=== PATIENT | male | born 1990 | race American Indian/Alaskan Native ===

== ENCOUNTER 2019-10-09 21:28 | Emergency (ER) | payer SELFPAY ==
[2019-10-10 01:46] VITALS: BP 127/70
[2019-10-10] MEDS ORDERED: ONDANSETRON 4 MG ODT TAB PO ONE (02:13)
[2019-10-10] MEDS ORDERED: FAMOTIDINE 20 MG TAB PO ONE (02:13)
[2019-10-10] MEDS ORDERED: diphenhydrAMINE 25 MG CAP PO ONE (02:13)
[2019-10-10] MEDS ORDERED: predniSONE 20 MG TAB PO ONE (02:13)
[2019-10-10] MEDS ORDERED: IBUPROFEN 600 MG TAB PO ONE (02:13)
--- NOTE | 2019-10-10 02:14 | Emergency Department Report ---
HPI - General Chief Complaint: Allergic Reaction ED Past Medical Hx - Past Medical History Previous Medical History?: Yes Additional medical history: "stomache ulcer"- no meds prescribed - Surgical History Past Surgical History?: No - Social History Smoking Status: Never Smoker Substance Use Type: Alcohol ED Review of Systems ROS: Stated complaint: ALLERGIC REACTION Other details as noted in HPI Physical Exam - Physical Exam Vital Signs: Vital Signs 10/10/19 01:44 Temperature 98.2 F Pulse Rate 69 Respiratory 18 Rate Blood Pressure 127/70 O2 Sat by Pulse 100 Oximetry ED Course Vital Signs 10/10/19 01:44 Temperature 98.2 F Pulse Rate 69 Respiratory 18 Rate Blood Pressure 127/70 O2 Sat by Pulse 100 Oximetry Critical care attestation.: If time is entered above; I have spent that time in minutes in the direct care of this critically ill patient, excluding procedure time. ED Disposition Condition: Stable Referrals: PRIMARY CARE [Primary Care Provider] - 3-5 Days
--- NOTE | 2019-10-10 02:20 | Emergency Department Report ---
ED General Adult HPI - General Chief complaint: Allergic Reaction Stated complaint: ALLERGIC REACTION Source: patient Mode of arrival: Ambulatory Limitations: No Limitations - History of Present Illness Initial comments: Patient is a 29-year-old -[place] male with no past medical history presents to the ED with complaint of acute onset persistent nasal and sinus congestion, frontal sinus pressure and sore throat for the last 2 days. Patient states that he was initially evaluated by his dentist and given a prescription for penicillin which he has been taking for the last 2 days. Patient states that the dentist diagnosed him with dental abscesses and gingivitis. Patient states that he then bought [id number] cough syrup and has been taking that together with the penicillin but developed diffuse burning sensation, worsening sore throat, chest tightness about 6 hours ago. Patient denies dizziness, diffuse itchy erythematous maculopapular rash, chest pain, shortness of breath, nausea, vomiting, diarrhea, abdominal pain, fever, chills, syncope, swollen lips or tongue, swollen throat, change in vision, facial swelling, dysphagia or dysphonia. MD Complaint: sore throat; diffuse burning sensation; diaphoresis; nasal congestion -: Sudden, days(s) (2) Location: mouth, chest Radiation: non-radiation Quality: burning, aching, sharp Consistency: intermittent Improves with: none Worsens with: none Associated Symptoms: denies other symptoms, cough, diaphoresis, headaches, loss of appetite, malaise, shortness of breath. denies: confusion, chest pain, fever/chills, nausea/vomiting, rash, seizure, syncope, weakness, other Treatments Prior to Arrival: none - Related Data Previous Rx's Medication Instructions Recorded Last Taken Type Famotidine [Pepcid] 20 mg PO Q12H #20 tablet 10/10/19 Unknown Rx hydrOXYzine PAMOATE [Vistaril] 25 mg PO Q6HR PRN #30 capsule 10/10/19 Unknown Rx predniSONE [Deltasone] 40 mg PO QDAY #10 tab 10/10/19 Unknown Rx Allergies Allergy/AdvReac Type Severity Reaction Status Date / Time No Known Allergies Allergy Unverified 10/09/19 22:20 ED Review of Systems ROS: Stated complaint: ALLERGIC REACTION Other details as noted in HPI Constitutional: denies: chills, fever Eyes: denies: eye pain, eye discharge, vision change ENT: throat pain, dental pain, congestion. denies: ear pain Respiratory: cough. denies: shortness of breath, wheezing Cardiovascular: denies: chest pain, palpitations Endocrine: no symptoms reported Gastrointestinal: denies: abdominal pain, nausea, diarrhea Genitourinary: denies: urgency, dysuria Musculoskeletal: denies: back pain, joint swelling, arthralgia Skin: denies: rash, lesions Neurological: denies: headache, weakness, paresthesias Psychiatric: denies: anxiety, depression Hematological/Lymphatic: denies: easy bleeding, easy bruising ED Past Medical Hx - Past Medical History Previous Medical History?: Yes Additional medical history: "stomache ulcer"- no meds prescribed - Surgical History Past Surgical History?: No - Social History Smoking Status: Never Smoker Substance Use Type: Alcohol - Medications Home Medications: Home Medications Medication Instructions Recorded Confirmed Last Taken Type Famotidine [Pepcid] 20 mg PO Q12H #20 tablet 10/10/19 Unknown Rx hydrOXYzine PAMOATE [Vistaril] 25 mg PO Q6HR PRN #30 capsule 10/10/19 Unknown Rx predniSONE [Deltasone] 40 mg PO QDAY #10 tab 10/10/19 Unknown Rx ED Physical Exam - General Limitations: No Limitations General appearance: alert, in no apparent distress - Head Head exam: Present: atraumatic, normocephalic, normal inspection - Eye Eye exam: Present: normal appearance, PERRL, EOMI Pupils: Present: normal accommodation - ENT ENT exam: Present: normal orophraynx, mucous membranes moist, TM's normal bilaterally, normal external ear exam, other (Grossly congested nasal passages) - Neck Neck exam: Present: normal inspection, full ROM - Respiratory Respiratory exam: Present: normal lung sounds bilaterally. Absent: respiratory distress, wheezes, rales, rhonchi, chest wall tenderness, accessory muscle use, decreased breath sounds, prolonged expiratory - Cardiovascular Cardiovascular Exam: Present: regular rate, normal rhythm, normal heart sounds. Absent: systolic murmur, diastolic murmur, rubs, gallop - GI/Abdominal GI/Abdominal exam: Present: soft, normal bowel sounds. Absent: tenderness, hyperactive bowel sounds, hypoactive bowel sounds, organomegaly - Extremities Exam Extremities exam: Present: normal inspection, full ROM, normal capillary refill - Back Exam Back exam: Present: normal inspection, full ROM. Absent: tenderness, CVA tenderness (R), muscle spasm, paraspinal tenderness, vertebral tenderness - Neurological Exam Neurological exam: Present: alert, oriented X3, CN II-XII intact, normal gait, reflexes normal - Psychiatric Psychiatric exam: Present: normal affect, normal mood - Skin Skin exam: Present: warm, dry, intact, normal color. Absent: rash ED Course Vital Signs 10/10/19 01:44 Temperature 98.2 F Pulse Rate 69 Respiratory 18 Rate Blood Pressure 127/70 O2 Sat by Pulse 100 Oximetry ED Medical Decision Making - Medical Decision Making This is a 29-year-old male who presented to the ED with complaint of sore throat, diffuse burning sensation throughout the body with diaphoresis, chills, fever, sore throat, nasal and sinus congestion. Patient states that he is currently on penicillin for a dental abscess and had been taking [id number] cough syrup. In the ED, patient is alert and oriented x3 and is not in distress but anxious. Patient was treated for a suspected acute allergic reaction to the cough syrup. Patient was discharged home on medication in addition to what he is really taking. Patient was advised to stop taking the cough syrup and to continue taking the penicillin as well as the prescribed steroids and Benadryl to come the symptoms that he has been having down. Patient was advised to follow-up with his primary care physician in 7 to 10 days for reevaluation or return to the ED immediately if symptoms get worse. - Differential Diagnosis pharyngitis; URI; Bronchitis; Allergic reaction Critical care attestation.: If time is entered above; I have spent that time in minutes in the direct care of this critically ill patient, excluding procedure time. ED Disposition Clinical Impression: Acute upper respiratory infection, Anxiety as acute reaction to exceptional stress Acute pharyngitis Qualifiers: Pharyngitis/tonsillitis etiology: other specified organisms Qualified Code(s): J02.8 - Acute pharyngitis due to other specified organisms Acute allergic reaction Qualifiers: Encounter type: initial encounter Qualified Code(s): T78.40XA - Allergy, unspecified, initial encounter Disposition: - TO HOME OR SELFCARE Is pt being admited?: No Does the pt Need Aspirin: No Condition: Stable Instructions: Allergies (ED), Urticaria (ED), Upper Respiratory Infection (ED), Anxiety (ED) Additional Instructions: Take medications as advised together with the other medication that you are ready have. Stop taking the cough syrup immediately. Follow-up with your primary care physician in 7 to 10 days for reevaluation. Return to the ED immediately if symptoms get worse. Prescriptions: predniSONE [Deltasone] 40 mg PO QDAY #10 tab Famotidine [Pepcid] 20 mg PO Q12H #20 tablet hydrOXYzine PAMOATE [Vistaril] 25 mg PO Q6HR PRN #30 capsule PRN Reason: Anxiety Referrals: [facility] [Outside] - 3-5 Days Time of Disposition: 02:22 Print Language: AMHARIC
== END 2019-10-10 02:33 | disposition home or self-care (01) ==
LOC: ED 21:28
DX: T78.40XA Allergy, unspecified, initial encounter (principal); J06.9 Acute upper respiratory infection, unspecified; J02.9 Acute pharyngitis, unspecified; F43.0 Acute stress reaction; Z79.899 Other long term (current) drug therapy; X58.XXXA Exposure to other specified factors, initial encounter
CPT/HCPCS: 99282; J7512; Q0162

== ENCOUNTER 2020-11-27 00:53 | Emergency (ER) | payer OTHER ==
[2020-11-27 01:09] VITALS: BP 128/83
--- NOTE | 2020-11-27 03:48 | Emergency Department Report ---
ED General Adult HPI - General Chief complaint: Dental/Oral Stated complaint: TOOTH PAIN Source: patient Mode of arrival: Ambulatory Limitations: No Limitations - History of Present Illness Initial comments: Patient is a 30-year-old -Serbian male with no past medical history who presents to the ED with complaint of acute onset persistent severe painful swollen left mandibular gingiva with premolar and molar toothache for the last 3 days, worse in the last 24 hours. Patient states that he has been taking [id number] Tylenol with no relief. Patient states that he has not been able to eat or sleep because of worsening pain. Patient states that he contacted various dentists in his local area but was unable to get any appointment at least in the next 2 months. Patient denies dizziness, syncope, fever, chills, nausea and vomiting, sore throat, headache, chest pain, shortness of breath, abdominal pain, dysphagia, dysphonia or traumatic injury. MD Complaint: Toothache, swollen gums -: Sudden, days(s) (3) Location: mouth Radiation: non-radiation Severity scale (0 -10): 8 Quality: aching, sharp Consistency: constant Improves with: none Worsens with: none Associated Symptoms: denies other symptoms. denies: confusion, chest pain, cough, diaphoresis, fever/chills, headaches, loss of appetite, malaise, na usea/vomiting, rash, seizure, shortness of breath, syncope, weakness Treatments Prior to Arrival: none - Related Data Previous Rx's Medication Instructions Recorded Last Taken Type Famotidine [Pepcid] 20 mg PO Q12H #20 tablet 10/10/19 Unknown Rx hydrOXYzine PAMOATE [Vistaril] 25 mg PO Q6HR PRN #30 capsule 10/10/19 Unknown Rx predniSONE [Deltasone] 40 mg PO QDAY #10 tab 10/10/19 Unknown Rx Clindamycin [Clindamycin CAP] 300 mg PO Q8HR #60 capsule 11/27/20 Unknown Rx Ketorolac [Toradol] 10 mg PO Q8H PRN #20 tablet 11/27/20 Unknown Rx traMADoL [Ultram] 50 mg PO Q6HR PRN #12 tablet 11/27/20 Unknown Rx Allergies Allergy/AdvReac Type Severity Reaction Status Date / Time No Known Allergies Allergy Unverified 10/09/19 22:20 ED Review of Systems ROS: Stated complaint: TOOTH PAIN Other details as noted in HPI Constitutional: denies: chills, fever Eyes: denies: eye pain, eye discharge, vision change ENT: dental pain, other (Painful swollen left mandibular gingiva). denies: ear pain, throat pain Respiratory: denies: cough, shortness of breath, wheezing Cardiovascular: denies: chest pain, palpitations Endocrine: no symptoms reported Gastrointestinal: denies: abdominal pain, nausea, vomiting, diarrhea Genitourinary: denies: urgency, dysuria Musculoskeletal: denies: back pain, joint swelling, arthralgia Skin: denies: rash, lesions Neurological: denies: headache, weakness, paresthesias Psychiatric: denies: anxiety, depression Hematological/Lymphatic: denies: easy bleeding, easy bruising ED Past Medical Hx - Past Medical History Previous Medical History?: No Additional medical history: "stomache ulcer"- no meds prescribed - Surgical History Past Surgical History?: No - Social History Smoking Status: Never Smoker Substance Use Type: None - Medications Home Medications: Home Medications Medication Instructions Recorded Confirmed Last Taken Type Famotidine [Pepcid] 20 mg PO Q12H #20 tablet 10/10/19 Unknown Rx hydrOXYzine PAMOATE [Vistaril] 25 mg PO Q6HR PRN #30 capsule 10/10/19 Unknown Rx predniSONE [Deltasone] 40 mg PO QDAY #10 tab 10/10/19 Unknown Rx Clindamycin [Clindamycin CAP] 300 mg PO Q8HR #60 capsule 11/27/20 Unknown Rx Ketorolac [Toradol] 10 mg PO Q8H PRN #20 tablet 11/27/20 Unknown Rx traMADoL [Ultram] 50 mg PO Q6HR PRN #12 tablet 11/27/20 Unknown Rx ED Physical Exam - General Limitations: No Limitations General appearance: alert, in no apparent distress - Head Head exam: Present: atraumatic, normocephalic, normal inspection - Eye Eye exam: Present: normal appearance, PERRL, EOMI Pupils: Present: normal accommodation - ENT ENT exam: Present: mucous membranes moist, normal external ear exam, other (Swollen, severely tender left mandibular gingiva; severely tender left mandibular premolar and molar teeth as well as multiple chronic dental caries) - Neck Neck exam: Present: normal inspection, full ROM - Respiratory Respiratory exam: Present: normal lung sounds bilaterally. Absent: respiratory distress, wheezes, rales, rhonchi, chest wall tenderness, accessory muscle use, decreased breath sounds - Cardiovascular Cardiovascular Exam: Present: regular rate, normal rhythm, normal heart sounds. Absent: systolic murmur, diastolic murmur, rubs, gallop - GI/Abdominal GI/Abdominal exam: Present: soft, normal bowel sounds. Absent: hyperactive bowel sounds, hypoactive bowel sounds, organomegaly, mass, bruit, pulsatile mass - Rectal Rectal exam: Present: deferred - Extremities Exam Extremities exam: Present: normal inspection - Back Exam Back exam: Present: normal inspection - Neurological Exam Neurological exam: Present: alert, oriented X3 - Psychiatric Psychiatric exam: Present: normal affect, normal mood - Skin Skin exam: Present: warm, dry, intact, normal color. Absent: rash ED Course Vital Signs 11/27/20 01:05 Temperature 98.4 F Pulse Rate 62 Respiratory 18 Rate Blood Pressure 128/83 O2 Sat by Pulse 99 Oximetry ED Medical Decision Making - Medical Decision Making This is a 30-year-old -Serbian male with no past medical history who presents to the ED with complaint of acute onset persistent severe painful swollen left mandibular gingiva with premolar and molar toothache for the last 3 days, worse in the last 24 hours. Patient states that he has been taking [id number] Tylenol with no relief. Patient states that he has not been able to eat or sleep because of worsening pain. Patient states that he contacted various dentists in his local area but was unable to get any appointment at least in the next 2 months. In the ED, patient is alert and oriented x3 and is not in any distress. Based on the history and physical exam findings, the patient was discharged home on pain medications and antibiotics and was advised to follow-up with his dentist in 7 to 10 days for reevaluation. Patient was advised return to the ED immediately if symptoms get worse. - Differential Diagnosis Dental abscess; gingivitis; dental caries Critical care attestation.: If time is entered above; I have spent that time in minutes in the direct care of this critically ill patient, excluding procedure time. ED Disposition Clinical Impression: Dental abscess, Acute gingivitis, Chronic enamel dental caries Disposition: TO HOME OR SELFCARE Is pt being admited?: No Does the pt Need Aspirin: No Condition: Stable Instructions: Dental Abscess, [id number], Trench Mouth Additional Instructions: Your symptoms are due to dental abscesses and gingivitis due to chronic dental caries. Therefore take the pain medication and antibiotic as advised, drink plenty of fluids and follow-up with your dentist or primary care physician in 7 to 10 days for reevaluation. Return to the ED immediately if symptoms get worse. Prescriptions: Clindamycin [Clindamycin CAP] 300 mg PO Q8HR #60 capsule Ketorolac [Toradol] 10 mg PO Q8H PRN #20 tablet PRN Reason: Pain traMADoL [Ultram] 50 mg PO Q6HR PRN #12 tablet PRN Reason: Pain Referrals: [facility] [Outside] - 3-[address] [facility] [Outside] - 3-5 Days Time of Disposition: 03:49 Print Language: IRISH
== END 2020-11-27 04:00 | disposition home or self-care (01) ==
LOC: ED 00:53
DX: K04.7 Periapical abscess without sinus (principal); K05.00 Acute gingivitis, plaque induced; K02.9 Dental caries, unspecified; Z79.2 Long term (current) use of antibiotics; Z79.899 Other long term (current) drug therapy
CPT/HCPCS: 99282